=== PATIENT | female | born 1950 | race Caucasian/White ===

== ENCOUNTER 2016-06-21 11:46 | Emergency (ER) | payer MEDICARE ==
[~2016-06-21 11:46] MED LIST: ALLERGY10 M1 PO; BACTRIM D.S. TAB1 EA PO; BACTROBAN22 GM TOP; BUSPAR 5MG TABLE5 MG PO; DESYREL 50 MG T50 MG PO; DITROPAN 5 MG TA5 MG PO; ETODOLAC500 MG PO; FOSAMAX70 MG PO; MIRALAX PACK 171 PKT PO; NORCO 5-325 TA1 EACH PO; NORVASC 5 MG TAB5 MG PO; OMEPRAZOLE20 MG PO; PRAVACHOL20 MG PO; REQUIP0.25 MG PO; TRENTAL 400 MG400 MG PO
[2016-06-21 13:23] LABS: HEMOGLOBIN 14.2 gm/dl (12.3-15.3); RED BLOOD COUNT 4.94 M/UL (4.00-5.10); WHITE BLOOD COUNT 6.8 K/UL (4.5-11.0)
[2016-06-21 13:43] LABS: BUN/CREATININE RATIO 40 (0-10)
== END 2016-06-21 17:00 | disposition home or self-care (01) ==
LOC: ER1 11:46
PROVIDERS: Physician Assistant
DX: R05 Cough (principal); R91.1 Solitary pulmonary nodule; E87.6 Hypokalemia; R06.2 Wheezing; J34.89 Other specified disorders of nose and nasal sinuses; R59.0 Localized enlarged lymph nodes; R50.9 Fever, unspecified; I10 Essential (primary) hypertension; J45.909 Unspecified asthma, uncomplicated; F17.210 Nicotine dependence, cigarettes, uncomplicated; Z79.899 Other long term (current) drug therapy
CPT/HCPCS: 36415; 71020; 80053; 84484; 85025; 87040; 87081; 87880; 93005; 94664; 96374; 99284; J2930

== ENCOUNTER → 2016-06-30 | Outpatient (CLI) | payer MEDICARE | LOC: CT 08:30 | DX: R91.8 Other nonspecific abnormal finding of lung field (principal); R91.1 Solitary pulmonary nodule | CPT/HCPCS: 71260; J7050; Q9962 ==

== ENCOUNTER 2021-07-05 15:26 | Emergency (ER) | payer OTHER | END 2021-07-05 17:15 | disposition home or self-care (01) | LOC: ER1 15:26 | DX: S09.90XA Unspecified injury of head, initial encounter (principal); S39.012A Strain of muscle, fascia and tendon of lower back, initial encounter; S16.1XXA Strain of muscle, fascia and tendon at neck level, initial encounter; Z79.01 Long term (current) use of anticoagulants; I48.91 Unspecified atrial fibrillation; J44.9 Chronic obstructive pulmonary disease, unspecified; F17.200 Nicotine dependence, unspecified, uncomplicated; V49.50XA Passenger injured in collision with unspecified motor vehicles in traffic accident, initial encounter; Y92.410 Unspecified street and highway as the place of occurrence of the external cause | CPT/HCPCS: 70450; 72125; 72128; 72131; 99284 ==

== ENCOUNTER → 2021-10-28 | Outpatient (CLI) | payer MEDICARE | LOC: KOH-I 08:15 | DX: S13.4XXD Sprain of ligaments of cervical spine, subsequent encounter (principal); M50.31 Other cervical disc degeneration, high cervical region; R90.89 Other abnormal findings on diagnostic imaging of central nervous system | CPT/HCPCS: 72141 ==